=== PATIENT | female | born 1990 | race Caucasian/White ===

== ENCOUNTER 2019-04-06 11:43 | Outpatient (CLI) | payer OTHER | END 2019-04-06 12:00 | disposition home or self-care (01) | LOC: SONOGRAMA 11:43 | DX: N97.1 Female infertility of tubal origin (principal) ==

== ENCOUNTER 2019-06-01 10:27 | Outpatient (CLI) | payer OTHER | END 2019-06-01 10:39 | disposition home or self-care (01) | LOC: RX STUDY 10:27 | DX: N80.0 Endometriosis of uterus (principal) ==